=== PATIENT | male | born 1970 | race Two or more races ===

== ENCOUNTER → 2021-07-23 15:08 | Outpatient (BNVA) | payer BC, SELFPAY | PROVIDERS: PCP Internal Medicine; Visit Provider Surgery | DX: Z13.89 Encounter for screening for other disorder (principal) ==

== ENCOUNTER 2021-08-13 10:16 | Outpatient (REF) | payer BC, SELFPAY | END 2021-08-13 10:17 | disposition home or self-care (01) | LOC: HO.LAB 10:16 | PROVIDERS: PCP Internal Medicine; Referring Provider Internal Medicine; Visit Provider Surgery | DX: L72.0 Epidermal cyst (principal) | CPT/HCPCS: 11403; 88304 ==

== ENCOUNTER → 2021-08-22 11:05 | Outpatient (BNVA) | payer BC, SELFPAY | PROVIDERS: PCP Internal Medicine; Visit Provider Surgery | DX: L72.0 Epidermal cyst (principal) ==

== ENCOUNTER 2024-11-02 12:50 | Outpatient (AMB) | payer OTHER, SELFPAY ==
--- NOTE | 2024-11-02 12:54 | A.OFFVIS_ITS ---
Vital Signs 3 11/02/24 13:10 Height 5 ft 7 in Weight 179 lb BMI 28.0 BP 141/75 H Blood Pressure Location Lt brachial Position Sitting Pulse 57 Intake Visit Reasons: Cyst (R) Shoulder Intake Note: Patient is seen in office for evaluation of a right shoulder cyst. 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 Pt previously had an excision of cysts in the same area in 2019. Pt reports sharp non radiating pain and itchiness when he moves his shoulder for the last two weeks. Pt noted that he has a muscle tear in the R shoulder and worries about the cysts affecting the area. He has not taken any medication for the pain. He denies and nausea, vomiting, fevers, chills, or shortness of breath. [facility] Surgical History History of epidermal inclusion cyst excision (08/13/21) History of incision and drainage History of removal of cyst (08/02/19) Social History Alcohol intake: current Alcohol intake frequency: holidays/special occasions only Patient Tobacco Use Status: Never used Tobacco Physical Exam Exam Exam: The larger cyst is 5-6cm in length and was first noticed about a year ago. It has slowly been getting larger and feels semi-solid upon palpation. The second cyst is slightly superior and is about 2cm in length. It is firm upon palpation. Vital Signs: Last Vital Signs Pulse 57 11/02/24 13:10 BP 141/75 H 11/02/24 13:10 BMI result Body Mass Index 28.0 Back/Spine/Pelvis Back/spine/pelvis image: 2 1. 2. 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 I reviewed the procedure, risks and alternatives and he consents to excision of the right upper back sebaceous cyst x2 Coding Level of Care Code Est Pt Level 4 (40728) Diagnoses Epidermal inclusion cyst L72.0
[2024-11-02 13:10] VITALS: BP 141/75; PULSE 57; BMI 28.0
== END 2024-11-02 13:17 | disposition home or self-care (01) ==
LOC: HO.HGS 12:51
PROVIDERS: PCP Internal Medicine; Visit Provider Surgery
DX: L72.0 Epidermal cyst (principal)
CPT/HCPCS: 99214

== ENCOUNTER 2024-11-14 13:48 | Outpatient (AMB) | payer OTHER, SELFPAY ==
--- NOTE | 2024-11-14 14:01 | A.OFFVIS_ITS ---
Vital Signs 11/14/24 14:05 Height 5 ft 7 in Weight 180 lb BMI 28.2 BP 123/73 Blood Pressure Location Lt brachial Position Sitting Pulse 55 Intake Visit Reasons: excision Cyst (R) Shoulder Intake Note: Patient is seen for office procedure, excision of 2 cyst of the right upper back. Pt c/o: pain on his right shoulder with the touch due a cyst/2nd time. 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 Required: No Accompanied by: Self / Same As Patient Allergies sucralfate (Carafate) Allergy (Unknown, Verified 11/14/24 13:59) itching Sulfa (Sulfonamide Antibiotics) Allergy (Unknown, Verified 11/14/24 13:59) redness Medication List - Last Reconciled 11/14/24 by Colin Flowers MD No Known Home Meds HPI Comments Details: Patient returns today for excision of a epidermal inclusion cyst of the right upper back x2 PFSH Surgical History History of epidermal inclusion cyst excision (08/13/21) History of incision and drainage History of removal of cyst (08/02/19) Social History Alcohol intake: current Alcohol intake frequency: holidays/special occasions only Patient Tobacco Use Status: Never used Tobacco Physical Exam Vital Signs: Last Vital Signs Pulse 55 11/14/24 14:05 BP 123/73 11/14/24 14:05 BMI result Body Mass Index 28.2 Office Procedures Excision Details: Preoperative diagnosis: Epidermal inclusion cyst x2 right upper back Postoperative diagnosis: Same Procedure: Excision epidermal inclusion cyst x2 right upper back Surgeon: Colin Flowers MD Sound Engineer: None Anesthesia: Lidocaine 1% with epinephrine Indications for procedure: To enlarging epidermal inclusion cyst of the right u pper back 1 measuring approximately 2 cm the 2nd measuring 1.5 cm directly on top of the 1st lesion Operative findings: Epidermal inclusion cyst, noninfected Specimen: Epidermal inclusion cyst right upper back Estimated blood loss: 2 mL Complications: None Procedure details: Patient was placed in a left lateral decubitus position in the procedure room. After assuring informed consent the skin was prepped with Betadine and draped in a sterile fashion. Local anesthesia was then infiltrated circumferentially to include both lesions. An elliptical incision in the longitudinal direction was then created to include both cysts. The incision was carried down through subcutaneous tissue and around the cyst wall. The cyst were excised and sent to pathology for further examination. Dermis was then reapproximated using interrupted 3-0 Polysorb sutures. Skin was closed using interrupted 3-0 nylon sutures including 2 mattress sutures. Sterile dressings consisting of 3 x 3 gauze and Tegaderm were then applied. The patient tolerated the procedure well. He was discharged in stable condition. 26294-risjg/arms/legs 1.1-2cm Procedure code (CPT) selection complete Assessment & Plan Assessment & Plan (1) Epidermal inclusion cyst: Code(s): L72.0 - Epidermal cyst Category: Medical Plan 54-year-old male patient returning today for an excision of an epidermal inclusion cyst x2 of the right upper back. He tolerated the procedure well and will return in approximately 2 weeks for suture removal. He is welcome to call sooner for any new concerns. Orders: Orders Surgical Today L72.0 - Epidermal cyst Coding Level of Care Code Procedure Only Diagnoses Epidermal inclusion cyst L72.0 CPT Codes Trunk/Arms/Legs - CPT: 59849-webon/arms/legs 1.1-2cm ([id number])
[2024-11-14 14:05] VITALS: BP 123/73; PULSE 55; BMI 28.2
== END 2024-11-14 14:49 | disposition home or self-care (01) ==
LOC: HO.HGS 13:49
PROVIDERS: PCP Internal Medicine; Visit Provider Surgery
DX: L72.0 Epidermal cyst (principal)
CPT/HCPCS: 11404

== ENCOUNTER 2024-11-14 13:48 | Outpatient (REF) | payer OTHER, SELFPAY | END 2024-11-14 13:49 | disposition home or self-care (01) | LOC: HO.LNP 13:48 | PROVIDERS: PCP Internal Medicine; Visit Provider Surgery | DX: L72.0 Epidermal cyst (principal); M25.511 Pain in right shoulder | CPT/HCPCS: 11404; 88304 ==

== ENCOUNTER 2024-11-24 11:13 | Outpatient (AMB) | payer OTHER, SELFPAY ==
--- NOTE | 2024-11-24 11:18 | A.OFFVIS_ITS ---
Vital Signs 11/24/24 11:33 Height 5 ft 7 in Weight 183 lb BMI 28.7 BP 134/78 Blood Pressure Location Lt brachial Position Sitting Pulse 51 Intake Visit Reasons: s/p excision of cyst shoulder Intake Note: Patient is seen in for follow up visit post, excision of an epidermal inclusion cyst of the right upper back. Pt c/o: admits to healing as expected, sutures removed at visit Professor Sculpture Required: No Accompanied by: Self / Same As Patient Allergies sucralfate (Carafate) Allergy (Unknown, Verified 11/24/24 11:33) itching Sulfa (Sulfonamide Antibiotics) Allergy (Unknown, Verified 11/24/24 11:33) redness HPI Comments Details: Patient returns 1 week following excision of a large cyst of the right upper back. He reports some itchiness and pain from the sutures. He denies any bleeding or discharge. [facility] Surgical History History of epidermal inclusion cyst excision (08/13/21) History of incision and drainage History of removal of cyst (08/02/19) Social History Alcohol intake: current Alcohol intake frequency: holidays/special occasions only Patient Tobacco Use Status: Never used Tobacco Physical Exam Vital Signs: Last Vital Signs Pulse 51 11/24/24 11:33 BP 134/78 11/24/24 11:33 BMI result Body Mass Index 28.7 Const Other: No acute distress Back/Spine/Pelvis Other: Incision is clean, dry and intact with intact sutures. Sutures removed and wounds found to be well healed. Skin Other: Warm, dry, no rash Assessment & Plan Assessment & Plan (1) Epidermal inclusion cyst: Code(s): L72.0 - Epidermal cyst Category: Medical Plan 54-year-old male returning 1 week following excision of a epidermal inclusion cyst of the right upper back. He tolerated the procedure well the wounds are healing nicely. He should follow up as needed. Coding Level of Care Code Global (10238) Diagnoses Epidermal inclusion cyst L72.0
[2024-11-24 11:33] VITALS: BP 134/78; PULSE 51; BMI 28.7
== END 2024-11-24 11:33 | disposition home or self-care (01) ==
LOC: HO.HGS 11:14
PROVIDERS: PCP Internal Medicine; Visit Provider Surgery
DX: L72.0 Epidermal cyst (principal)
CPT/HCPCS: 99024